=== PATIENT | female | born 1985 | race Hispanic/Latino ===

== ENCOUNTER 2022-08-18 13:32 | Emergency (ER) | payer OTHER ==
[~2022-08-18] VITALS: Ht 165.1 cm; Wt 70.3 kg
[2022-08-18 14:03] LABS: BASOPHILS % (AUTO) 0.3 % (0.0-5.0); EOSINOPHILS % (AUTO) 5.5 % (0.0-8.0); LYMPHOCYTES % (AUTO) 14.6 % (21.0-51.0); MEAN CORPUSCULAR HEMOGLOBIN 31.3 pg (27.0-33.0); MEAN CORPUSCULAR HGB CONC 34.2 g/dL (32.0-36.0); MEAN CORPUSCULAR VOLUME 91.6 fL (79-99); MONOCYTES % (AUTO) 4.6 % (3.0-13.0); NEUTROPHILS % (AUTO) 74.9 % (40.0-77.0); PLATELET COUNT (AUTO) 203 K/uL (130-400); RED BLOOD CELL COUNT(AUTO) 4.15 MIL/uL (4.00-5.50); RED CELL DISTRIBUTION WIDTH 11.7 % (11.0-15.5); WHITE BLOOD COUNT (AUTO) 6.9 K/uL (4.8-10.8)
[2022-08-18 14:29] LABS: CREATININE 0.8 mg/dL (0.5-1.5); POTASSIUM 3.9 mmol/L (3.5-5.1)
[2022-08-18 14:33] LABS: ALBUMIN 3.9 g/dL (3.5-5.0); TOTAL PROTEIN, SERUM 7.3 g/dL (6.0-8.3)
[2022-08-18] MEDS ORDERED: KETOROLAC 60 MG VIAL (30MG/ML) IM ONE (16:30)
[2022-08-18] MEDS ORDERED: MAG/ALUM/SIMETH 30 ML UDCUP PO ONE (18:30)
[2022-08-18] MEDS ORDERED: LIDOCAINE HCL 2% VISCOUS 15 ML UDCUP PO ONE (18:30)
[2022-08-18 19:44] VITALS: BP 110/64
== END 2022-08-18 19:50 | disposition home or self-care (01) ==
LOC: EDH 13:32
DX: R10.13 Epigastric pain (principal); Z90.710 Acquired absence of both cervix and uterus
CPT/HCPCS: 99285; 74176; 71045; 84484; 80053; 85025; 36415; 96372; 93005; J1885